=== PATIENT | female | born 1995 | race Caucasian/White ===

== ENCOUNTER → 2016-10-24 | Outpatient (CLI) | payer BC | LOC: US 13:00 | DX: R59.0 Localized enlarged lymph nodes (principal); E04.1 Nontoxic single thyroid nodule | CPT/HCPCS: 76536 ==

== ENCOUNTER 2016-10-25 17:15 | Emergency (ER) | payer BC | END 2016-10-25 18:53 | disposition left against medical advice (07) | LOC: ER1 17:15 | DX: Z53.21 Procedure and treatment not carried out due to patient leaving prior to being seen by health care provider (principal) ==

== ENCOUNTER 2016-11-10 14:33 | Emergency (ER) | payer BC | END 2016-11-10 15:40 | disposition left against medical advice (07) | LOC: ER1 14:33 | DX: Z53.21 Procedure and treatment not carried out due to patient leaving prior to being seen by health care provider (principal) ==

== ENCOUNTER 2016-12-13 09:05 | Emergency (ER) | payer BC | END 2016-12-13 09:45 | disposition home or self-care (01) | LOC: ER1 09:05 | DX: Z53.21 Procedure and treatment not carried out due to patient leaving prior to being seen by health care provider (principal) ==

== ENCOUNTER 2016-12-22 07:09 | Emergency (ER) | payer BC | END 2016-12-22 09:50 | disposition home or self-care (01) | LOC: ER1 07:09 | DX: G43.909 Migraine, unspecified, not intractable, without status migrainosus (principal); F17.200 Nicotine dependence, unspecified, uncomplicated; Z90.49 Acquired absence of other specified parts of digestive tract; Z88.0 Allergy status to penicillin; Z88.5 Allergy status to narcotic agent | CPT/HCPCS: 84703; 96374; 96375; 99284; J1200; J1885; J2765 ==

== ENCOUNTER 2016-12-25 00:54 | Emergency (ER) | payer BC ==
[2016-12-25 02:06] LABS: HEMOGLOBIN 15.2 gm/dl (12.3-15.3); RED BLOOD COUNT 4.95 M/UL (4.00-5.10); WHITE BLOOD COUNT 10.2 K/UL (4.5-11.0)
[2016-12-25 02:26] LABS: BUN/CREATININE RATIO 17 (0-10)
== END 2016-12-25 03:10 | disposition home or self-care (01) ==
LOC: ER1 00:54
PROVIDERS: Physician Assistant
DX: R11.2 Nausea with vomiting, unspecified (principal); R19.7 Diarrhea, unspecified; R10.13 Epigastric pain; F17.210 Nicotine dependence, cigarettes, uncomplicated; Z88.0 Allergy status to penicillin; Z88.8 Allergy status to other drugs, medicaments and biological substances
CPT/HCPCS: 36415; 80053; 83605; 83690; 84703; 85025; 96374; 96375; 99284; C9113; J2405

== ENCOUNTER 2016-12-26 00:37 | Emergency (ER) | payer BC | END 2016-12-26 01:52 | disposition home or self-care (01) | LOC: ER1 00:37 | DX: F41.1 Generalized anxiety disorder (principal); Z88.0 Allergy status to penicillin; Z88.8 Allergy status to other drugs, medicaments and biological substances | CPT/HCPCS: 71020; 93005; 99285 ==

== ENCOUNTER 2017-01-06 07:26 | Emergency (ER) | payer BC | END 2017-01-06 08:05 | disposition home or self-care (01) | LOC: ER1 07:26 | DX: L55.9 Sunburn, unspecified (principal); F17.200 Nicotine dependence, unspecified, uncomplicated; Z88.0 Allergy status to penicillin; Z88.8 Allergy status to other drugs, medicaments and biological substances | CPT/HCPCS: 99282 ==

== ENCOUNTER 2021-02-09 03:31 | Emergency (ER) | payer OTHER ==
[~2021-02-09 03:31] MED LIST: IBUPROFEN600 MG PO; LODINE CAP 300300 MG PO
== END 2021-02-09 05:40 | disposition home or self-care (01) ==
LOC: ER1 03:31
DX: M79.642 Pain in left hand (principal)
CPT/HCPCS: 73130; 99283

== ENCOUNTER 2021-08-08 23:08 | Emergency (ER) | payer OTHER ==
[2021-08-09 03:52] LABS: HEMOGLOBIN 13.3 gm/dl (12.3-15.3); RED BLOOD COUNT 4.33 M/UL (4.00-5.10); WHITE BLOOD COUNT 8.4 K/UL (4.5-11.0)
[2021-08-09 04:17] LABS: BUN/CREATININE RATIO 10 (0-10)
[2021-08-09] MEDS ORDERED: ZOFRAN ODT 4 MG4 MG PO (04:35)
== END 2021-08-09 05:02 | disposition home or self-care (01) ==
LOC: ER1 23:08
PROVIDERS: Family Medicine
DX: U07.1 COVID-19 (principal); Z88.0 Allergy status to penicillin; F17.290 Nicotine dependence, other tobacco product, uncomplicated; E66.01 Morbid (severe) obesity due to excess calories; R11.2 Nausea with vomiting, unspecified
CPT/HCPCS: 80053; 85025; 99283; U0002